=== PATIENT | female | born 1985 | race Caucasian/White ===

== ENCOUNTER 2017-02-21 19:53 | Emergency (ER) | payer MEDICAID, OTHER ==
--- NOTE | 2017-02-21 21:24 | ED.PDOC ---
History of Present Illness - General Chief Complaint: Abdominal Pain Stated Complaint: Abd cramping with vaginal spotting Time Seen by Provider: 02/21/17 20:14 Source: patient Exam Limitations: no limitations - History of Present Illness Initial Comments: Amber Dunbar 31 y/o female stated that she had positive test 2 weeks ago after she had vaginal bleeding and abdominal cramps then cramping went away but today stated had another episode of abdominal cramping and vaginal spotting.She is Ab 3 LMP-01/23/2017 stating had regular periods.She was seen initially at [facility] in [place] where he had positive test and ? hcg [id number].Patient lives in [place] and going back tomorrow. Timing/Duration: this morning, changing over time Quality: mild, cramping Onset Location: suprapubic Radiation: back Activites at Onset: none Prior abdominal problems: none Sexual intercourse history: other - always Improving Factors: nothing Worsening Factors: nothing Associated Symptoms: other - see hpi Allergies/Adverse Reactions: Allergies NO KNOWN ALLERGY Allergy (Verified 09/19/15 14:52) Home Medications: Ambulatory Orders Ibuprofen 800 mg PO Q8HRS PRN #30 tab 09/19/15 Lisdexamfetamine Dimesylate [Vyvanse] 20 mg PO DAILY PRN 09/19/15 Zolpidem Tartrate [Ambien] 5 mg PO DAILY PRN 09/19/15 Review of Systems - Review of Systems Constitutional: States: no symptoms reported EENTM: States: no symptoms reported Respiratory: States: no symptoms reported Cardiology: States: no symptoms reported Gastrointestinal/Abdominal: States: no symptoms reported Genitourinary: States: see HPI Musculoskeletal: States: no symptoms reported Skin: States: no symptoms reported Past Medical History (General) - Patient Medical History Hx Seizures: No Hx Stroke: No Hx Dementia: No Hx Asthma: No Hx of COPD: No Hx Cardiac Disorders: No Hx Congestive Heart Failure: No Hx Pacemaker: No Hx Hypertension: No Hx Thyroid Disease: No Hx Diabetes: No Hx Gastroesophageal Reflux: No Hx Renal Disease: No Hx Cancer: No Hx of HIV: No Hx Hepatitis C: No Hx MRSA: No Surgical History: appendectomy, cholecystectomy, other - Vaccination History Hx Tetanus, Diphtheria Vaccination: Yes - unknown last date Hx Influenza Vaccination: No Hx Pneumococcal Vaccination: No Immunizations Up to Date: No - Social History Hx Tobacco Use: No Hx Chewing Tobacco Use: No Hx Alcohol Use: No Hx Substance Use: No Hx Substance Use Treatment: No Hx Depression: No Hx Physical Abuse: No Hx Emotional Abuse: No Hx Suspected Abuse: No - Female History Patient is a Female of Child Bearing Age (10 -59 yrs old): Yes Hx Last Menstrual Period: 11/01/13 Patient : No - Triage Comment ED Triage Comment: Pt unsure of pregancy status Family Medical History - Family History Grandparents Living Status: Hx Family Hypertension: Yes Hx Cardiac Disease: Yes Sister Living Status: Still Living Hx Family Hypertension: Yes Physical Exam - Physical Exam General Appearance: Alert, Comfortable, No apparent distress Eyes, Ears, Nose, Throat Exam: normal ENT inspection, pharynx normal Neck: non-tender, full range of motion, supple Cardiovascular/Respiratory: regular rate, rhythm, no M/R/G, normal peripheral pulses, normal breath sounds Gastrointestinal/Abdominal: non tender, soft, no organomegaly Pelvic Exam: external exam normal, no cerv. motion tender, other - no active bleeding cervical os ,brownish discharge vaginal vault mentioned to patient stating she has it for almost a year Progress - Progress Progress: 02/21/17 21:44 Vital Signs - 8 hr 02/21/17 20:15 Temperature 98.8 F Pulse Rate [Lt 88 arm] Respiratory 20 Rate Blood Pressure 114/76 [Left Arm] O2 Sat by Pulse 97 Oximetry - Results/Orders Results/Orders: Laboratory Results - last 24 hr 02/21/17 02/21/17 02/21/17 20:40 20:40 20:57 WBC RBC Hgb Hct MCV MCH MCHC RDW Plt Count MPV Absolute Neuts (auto) Absolute Lymphs (auto) Absolute Monos (auto) Absolute Eos (auto) Absolute Basos (auto) Neutrophils % Lymphocytes % Monocytes % Eosinophils % Basophils % Beta HCG, Quant 3032.0 H Urine Color Yellow Urine Appearance Clear Urine pH 5.5 Ur Specific [place] >= 1.030 Urine Protein Negative Urine Glucose (UA) Negative Urine Ketones Negative Urine Blood Moderate H Urine Nitrite Negative Urine Bilirubin Negative Urine Urobilinogen 0.2 Ur Leukocyte Esterase Negative Urine RBC 3-5 H Urine WBC 0-1 Ur Epithelial Cells 1-3 Urine Bacteria Rare Urine Mucus Small Urine HCG, Qual Positive Patient ABO/Rh 02/21/17 02/21/17 21:09 21:09 WBC 8.2 RBC 4.16 L Hgb 13.3 Hct 38.2 MCV 91.9 MCH 31.9 H MCHC 34.8 RDW 12.6 Plt Count 259 MPV 8.5 Absolute Neuts (auto) 5.40 Absolute Lymphs (auto) 1.90 Absolute Monos (auto) 0.70 Absolute Eos (auto) 0.10 Absolute Basos (auto) 0.00 Neutrophils % 65.9 Lymphocytes % 23.2 Monocytes % 9.1 H Eosinophils % 1.5 Basophils % 0.3 Beta HCG, Quant Urine Color Urine Appearance Urine pH Ur Specific [place] Urine Protein Urine Glucose (UA) Urine Ketones Urine Blood Urine Nitrite Urine Bilirubin Urine Urobilinogen Ur Leukocyte Esterase Urine RBC Urine WBC Ur Epithelial Cells Urine Bacteria Urine Mucus Urine HCG, Qual Patient ABO/Rh A POSITIVE Never had abdominal cramps while in er Departure - Departure Clinical Impression: Qualifiers: Weeks of gestation: less than 8 weeks Qualified Code(s): Z3A.01 - Less than 8 weeks gestation of Spotting affecting Qualifiers: Trimester: first trimester Qualified Code(s): O26.851 - Spotting complicating , first trimester Time of Disposition: 22:40 Disposition: Discharge to Home or Self Care Condition: Good Departure Forms: ED Discharge - Pt. Copy, Patient Portal Self Enrollment Instructions: DI for Abdominal Pain -- Early Home Medications: Ambulatory Orders Ibuprofen 800 mg PO Q8HRS PRN #30 tab 09/19/15 Lisdexamfetamine Dimesylate [Vyvanse] 20 mg PO DAILY PRN 09/19/15 Zolpidem Tartrate [Ambien] 5 mg PO DAILY PRN 09/19/15 Additional Instructions: NEED TO GO TO NEAREST ER WITH OB SERVICES IF SYMPTOMS RECURS;RETURN TO ER NEEDED;MAKE AN APPOINTMENT WITH [facility]
[2017-02-21] MEDS ORDERED: LACTATED RINGERS 1,000 ML IVS ONE (21:25)
[2017-02-21] MEDS ORDERED: ACETAMINOPHEN 500 MG TAB PO ONE (21:48)
[2017-02-21 22:55] VITALS: BP 110/68; TEMP 98.4; O2SAT 98
== END 2017-02-21 22:56 | disposition home or self-care (01) ==
LOC: ER 19:53
DX: O26.851 Spotting complicating pregnancy, first trimester (principal); Z3A.01 Less than 8 weeks gestation of pregnancy
CPT/HCPCS: 36415; 81001; 81025; 84702; 85025; 86900; 86901; J7120

== ENCOUNTER 2019-03-03 08:32 | Emergency (ER) | payer SELFPAY ==
[2019-03-03 09:16] VITALS: BP 106/86; TEMP 98; O2SAT 97
--- NOTE | 2019-03-03 09:58 | ED.PDOC ---
History of Present Illness - General Chief Complaint: ENT Problem Stated Complaint: Recent dx of strep throat Time Seen by Provider: 03/03/19 08:59 Source: patient, Vital Signs reviewed Exam Limitations: no limitations - History of Present Illness Initial Comments: patient presents today as a 33-year-old female with complaints of sore throat for one week. She states that she lives 5 hours away. She was recently diagnosed with strep throat and left her medications at home. She is here visiting family. She denies any recent fever or chills or nausea or vomiting. She states that she was on cephalexin but has taken a family member's amoxicillin and felt that it was working better. Allergies/Adverse Reactions: Allergies NO KNOWN ALLERGY Allergy (Verified 09/19/15 14:52) Home Medications: Ambulatory Orders Amoxicillin [Amoxil] 875 mg PO BID #20 cap 03/03/19 Cephalexin 500 mg PO BID 03/03/19 Review of Systems - Review of Systems Constitutional: States: no symptoms reported EENTM: States: throat pain. Denies: eye pain, tearing, nose congestion, throat swelling Respiratory: States: no symptoms reported Cardiology: States: no symptoms reported Gastrointestinal/Abdominal: States: no symptoms reported Genitourinary: States: no symptoms reported Musculoskeletal: States: no symptoms reported Skin: States: no symptoms reported Neurological: States: no symptoms reported Endocrine: States: no symptoms reported Hematologic/Lymphatic: States: no symptoms reported All other Systems: Reviewed and Negative Past Medical History (General) - Patient Medical History Hx Seizures: No Hx Stroke: No Hx Dementia: No Hx Asthma: No Hx of COPD: No Hx Cardiac Disorders: No Hx Congestive Heart Failure: No Hx Pacemaker: No Hx Hypertension: No Hx Thyroid Disease: No Hx Diabetes: No Hx Gastroesophageal Reflux: No Hx Renal Disease: No Hx Cancer: No Hx of HIV: No Hx Hepatitis C: No Hx MRSA: No Surgical History: appendectomy, cholecystectomy, tonsillectomy - Vaccination History Hx Tetanus, Diphtheria Vaccination: Yes - unknown last date Hx Influenza Vaccination: No Hx Pneumococcal Vaccination: No - Social History Hx Tobacco Use: Yes - Quit 2019 Hx Chewing Tobacco Use: No Hx Alcohol Use: No Hx Substance Use: No Hx Substance Use Treatment: No Hx Depression: No Hx Physical Abuse: No Hx Emotional Abuse: No Hx Suspected Abuse: No - Female History Patient is a Female of Child Bearing Age (10 -59 yrs old): Yes Hx Last Menstrual Period: 11/01/13 Patient : No Family Medical History - Family History Grandparents Living Status: Hx Family Hypertension: Yes Hx Cardiac Disease: Yes Sister Living Status: Still Living Hx Family Hypertension: Yes Physical Exam - Physical Exam General Appearance: Alert, No apparent distress Eye Exam: bilateral normal Ear Exam: bilateral ear: auricle normal, canal normal, TM normal Nasal Exam: normal inspection Throat Exam: normal mouth inspection, pharynx normal Neck: non-tender, full range of motion, supple, normal inspection, trachea midline Cardiovascular/Respiratory: regular rate, rhythm, no M/R/G, normal peripheral pulses, no JVD, normal breath sounds, no respiratory distress Abdominal Exam: non-tender, no organomegaly, no hernia Neurologic: umbrella tipper machine II-XII nml as tested, no motor/sensory deficits, alert, normal mood/affect, oriented x 3 Skin Exam: normal color, warm/dry Departure - Departure Clinical Impression: Pharyngitis Qualifiers: Pharyngitis/tonsillitis etiology: streptococcus Qualified Code(s): J02.0 - Streptococcal pharyngitis Time of Disposition: 09:56 Disposition: Discharge to Home or Self Care Condition: Excellent Departure Forms: ED Discharge - Pt. Copy, Patient Portal Self Enrollment Instructions: Sore Throat, Adult (DC) Prescriptions: Amoxicillin [Amoxil] 875 mg PO BID #20 cap Home Medications: Ambulatory Orders Amoxicillin [Amoxil] 875 mg PO BID #20 cap 03/03/19 Cephalexin 500 mg PO BID 03/03/19 Comments: complete antibiotic prescription. follow-up with PCP as necessary. Return to ED as necessary.
== END 2019-03-03 10:11 | disposition home or self-care (01) ==
LOC: ER 08:32
DX: J02.0 Streptococcal pharyngitis (principal); Z87.891 Personal history of nicotine dependence

== ENCOUNTER 2019-08-30 15:59 | Emergency (ER) | payer SELFPAY ==
[2019-08-30] MEDS ORDERED: ALUM & MAG HYDROX-SIMETHICONE 30 ML UD ONE (16:13)
[2019-08-30] MEDS ORDERED: LIDOCAINE HCL 2% (MOUTH-THROAT) 15 ML UD ONE (16:13)
[2019-08-30] MEDS: ALUM & MAG HYDROX-SIMETHICONE 30 ML, LIDOCAINE VISCOUS 2% 15 ML PO ONE ×2 (16:14)
[2019-08-30] MEDS: FAMOTIDINE 20 MG TAB PO ONE (16:50)
[2019-08-30] MEDS: SUCRALFATE 1 GM/10 ML 1 GM UD PO ONE (16:50)
--- NOTE | 2019-08-30 16:50 | RAD ---
EXAM DESCRIPTION: Abdomen Series CLINICAL HISTORY: 33 years Female, epigastric and chest pain COMPARISON: Previous obstructive series July 28, 2015 FINDINGS: Heart size is normal with normal pulmonary vascularity. No consolidating infiltrate or mass or pleural effusion. Upright view shows surgical clips in the right upper abdomen. Lung bases appear clear. Moderate amount of fecal material in the colon. No small bowel dilatation to suggest obstruction. IMPRESSION: Moderate amount of fecal material in the colon. No acute process is identified in the chest or abdomen. Electronically signed by: Drew Salmon MD 08/30/2019 4:48 PM CDT
[2019-08-30 19:16] VITALS: TEMP 98.4; O2SAT 100
--- NOTE | 2019-08-30 19:18 | ED.PDOC ---
History of Present Illness - General Chief Complaint: Chest Pain/OK Stated Complaint: chest pain Time Seen by Provider: 08/30/19 16:00 Source: patient Exam Limitations: no limitations - History of Present Illness Initial Comments: Patient is a 33-year-old female presenting to the emergency room secondary to intermittent chest pain that is been occurring over the last several hours. She is not currently having any chest pain. Chest pain actually starts in the epigastric area and then moves up substernally up almost to the neck. She felt like she was needing to burp for part of the time. The GI cocktail given to her here did not do much as she was not actually having any discomfort when she arrived here. She has had a history of reflux past. No history of any cardiac issues. Symptoms first occurred about 30 minutes after a large meal. Timing/Duration: 1-3 hours Severity: moderate Improving Factors: nothing Worsening Factors: nothing Associated Symptoms: denies symptoms Allergies/Adverse Reactions: Allergies NO KNOWN ALLERGY Allergy (Verified 08/30/19 16:12) Home Medications: Ambulatory Orders Famotidine 20 mg PO DAILY #30 tab 08/30/19 Sucralfate Tab [Carafate Tab] 1 gm PO QID #60 tab 08/30/19 Review of Systems - Review of Systems Constitutional: States: no symptoms reported EENTM: States: no symptoms reported Respiratory: States: no symptoms reported Cardiology: States: chest pain Gastrointestinal/Abdominal: States: abdominal pain, nausea Genitourinary: States: no symptoms reported Musculoskeletal: States: no symptoms reported Skin: States: no symptoms reported Neurological: States: no symptoms reported Endocrine: States: no symptoms reported All other Systems: No Change from Baseline Past Medical History (General) - Patient Medical History Hx Seizures: No Hx Stroke: No Hx Dementia: No Hx Asthma: No Hx of COPD: No Hx Cardiac Disorders: No Hx Congestive Heart Failure: No Hx Pacemaker: No Hx Hypertension: No Hx Thyroid Disease: No Hx Diabetes: No Hx Gastroesophageal Reflux: No Hx Renal Disease: No Hx Cancer: No Hx of HIV: No Hx Hepatitis C: No Hx MRSA: No - Vaccination History Hx Tetanus, Diphtheria Vaccination: Yes - unknown last date Hx Influenza Vaccination: No Hx Pneumococcal Vaccination: No - Social History Hx Tobacco Use: Yes - Quit 2019 Hx Chewing Tobacco Use: No Hx Alcohol Use: No Hx Substance Use: No Hx Substance Use Treatment: No Hx Depression: No Hx Physical Abuse: No Hx Emotional Abuse: No Hx Suspected Abuse: No - Activities of Daily Living Hospice Agency (if applicable):: None - Female History Patient is a Female of Child Bearing Age (10 -59 yrs old): No Hx Last Menstrual Period: 11/01/13 Patient : No Family Medical History - Family History Grandparents Living Status: Hx Family Hypertension: Yes Hx Cardiac Disease: Yes Sister Living Status: Still Living Hx Family Hypertension: Yes Physical Exam - Physical Exam General Appearance: Alert, Comfortable, No apparent distress Eye Exam: bilateral normal Ears, Nose, Throat: hearing grossly normal, normal ENT inspection Neck: full range of motion, supple Respiratory: lungs clear, normal breath sounds, no respiratory distress, no accessory muscle use Cardiovascular/Chest: normal peripheral pulses, regular rate, rhythm, no edema Peripheral Pulses: radial,right: 2+, radial,left: 2+ Gastrointestinal/Abdominal: non tender, soft Rectal Exam: deferred Back Exam: no CVA tenderness, no vertebral tenderness Extremity: normal range of motion, non-tender, normal inspection, no pedal edema, normal capillary refill Neurologic: change room attendant II-XII nml as tested, alert, normal mood/affect, oriented x 3 Skin Exam: normal color Comments: Vital Signs - 24 hr 08/30/19 08/30/19 08/30/19 16:00 16:13 17:00 Temperature 98.5 F 98.4 F Pulse Rate [ 77 77 66 brachial] Respiratory 16 18 18 Rate Blood Pressure 130/89 133/77 [Left Arm] O2 Sat by Pulse 96 100 Oximetry 08/30/19 18:00 Temperature 98.4 F Pulse Rate [ 63 brachial] Respiratory 18 Rate Blood Pressure 130/89 [Left Arm] O2 Sat by Pulse 100 Oximetry Progress - Progress Progress: 08/30/19 19:18 The patient is a 33-year-old female presenting with epigastric and substernal pain that is most likely related to esophagitis. 2 sets of cardiac enzymes and EKGs were performed which were reassuring. Chest x-ray was reassuring. The patient is going to be placed on Carafate and Pepcid for the next couple of weeks to help reduce this issue. She can also use liquid Maalox as needed. She needs to maintain a bland diet with small frequent meals. X-ray does show some mild constipation so a dose of milk of magnesia once a week for couple of weeks may also help. ER warnings are given for any significant worsening. Keep routine follow-up with primary care doctor otherwise. alex [email or web address] - Results/Orders Results/Orders: Chest x-ray appears benign. EKG shows normal sinus rhythm. Normal axis. No ST segment or T wave changes indicative of acute ischemia. Borderline early right bundle branch block. Occa sional PACs. Normal QT interval. Laboratory Tests 08/30/19 08/30/19 08/30/19 16:10 16:10 16:10 WBC 7.2 RBC 4.47 Hgb 14.4 Hct 41.3 MCV 92.5 MCH 32.3 H MCHC 35.0 RDW 12.7 Plt Count 275 MPV 8.9 Absolute Neuts (auto) 4.20 Absolute Lymphs (auto) 2.30 Absolute Monos (auto) 0.60 Absolute Eos (auto) 0.10 Absolute Basos (auto) 0.00 Neutrophils % 58.3 Lymphocytes % 31.5 Monocytes % 8.0 Eosinophils % 1.7 Basophils % 0.5 PT 9.7 INR < 1.00 PTT (SP) 24.4 D-Dimer, Quantitative Sodium 137 Potassium 3.6 Chloride 106 Carbon Dioxide 25 Anion Gap 9.6 L BUN 9 Creatinine 0.74 BUN/Creatinine Ratio 12.2 Random Glucose 82 Serum Osmolality 271.6 L Calcium 9.1 Magnesium 1.9 Total Bilirubin 0.5 AST 23 ALT 29 Alkaline Phosphatase 46 Creatine Kinase 91 CK-MB (CK-2) 1.9 CK-MB (CK-2) % Not Reportable Troponin I < 0.02 B-Natriuretic Peptide 6.7 Serum Total Protein 7.8 Albumin 4.1 Globulin 3.7 H Albumin/Globulin Ratio 1.1 Amylase 34 Lipase 35 TSH 5.51 Serum HCG, Qual Urine Color Urine Appearance Urine pH Ur Specific [place] Urine Protein Urine Glucose (UA) Urine Ketones Urine Blood Urine Nitrite Urine Bilirubin Urine Urobilinogen Ur Leukocyte Esterase Urine RBC Urine WBC Ur Epithelial Cells Urine Bacteria 08/30/19 08/30/19 08/30/19 16:10 16:10 16:42 WBC RBC Hgb Hct MCV MCH MCHC RDW Plt Count MPV Absolute Neuts (auto) Absolute Lymphs (auto) Absolute Monos (auto) Absolute Eos (auto) Absolute Basos (auto) Neutrophils % Lymphocytes % Monocytes % Eosinophils % Basophils % PT INR PTT (SP) D-Dimer, Quantitative 159 Sodium Potassium Chloride Carbon Dioxide Anion Gap BUN Creatinine BUN/Creatinine Ratio Random Glucose Serum Osmolality Calcium Magnesium Total Bilirubin AST ALT Alkaline Phosphatase Creatine Kinase CK-MB (CK-2) CK-MB (CK-2) % Troponin I B-Natriuretic Peptide Serum Total Protein Albumin Globulin Albumin/Globulin Ratio Amylase Lipase TSH Serum HCG, Qual Negative Urine Color Yellow Urine Appearance Sl cloudy Urine pH 6.0 Ur Specific [place] 1.020 Urine Protein Negative Urine Glucose (UA) Negative Urine Ketones Negative Urine Blood Moderate H Urine Nitrite Negative Urine Bilirubin Negative Urine Urobilinogen 0.2 Ur Leukocyte Esterase Negative Urine RBC 1-3 Urine WBC 1-3 Ur Epithelial Cells 20-30 Urine Bacteria 1+ 08/30/19 18:44 WBC RBC Hgb Hct MCV MCH MCHC RDW Plt Count MPV Absolute Neuts (auto) Absolute Lymphs (auto) Absolute Monos (auto) Absolute Eos (auto) Absolute Basos (auto) Neutrophils % Lymphocytes % Monocytes % Eosinophils % Basophils % PT INR PTT (SP) D-Dimer, Quantitative Sodium Potassium Chloride Carbon Dioxide Anion Gap BUN Creatinine BUN/Creatinine Ratio Random Glucose Serum Osmolality Calcium Magnesium Total Bilirubin AST ALT Alkaline Phosphatase Creatine Kinase 82 CK-MB (CK-2) 1.6 CK-MB (CK-2) % Not Reportable Troponin I < 0.02 B-Natriuretic Peptide Serum Total Protein Albumin Globulin Albumin/Globulin Ratio Amylase Lipase TSH Serum HCG, Qual Urine Color Urine Appearance Urine pH Ur Specific [place] Urine Protein Urine Glucose (UA) Urine Ketones Urine Blood Urine Nitrite Urine Bilirubin Urine Urobilinogen Ur Leukocyte Esterase Urine RBC Urine WBC Ur Epithelial Cells Urine Bacteria Departure - Departure Clinical Impression: Esophagitis Disposition: Discharge to Home or Self Care Condition: Fair Departure Forms: ED Discharge - Pt. Copy, Patient Portal Self Enrollment Instructions: Acid Reflux and GERD in Adults (DC) Diet: bland diet Activity: increase activity as tolerated Referrals: Evan De La Garza MD [Primary Care Provider] - 1-2 Weeks Prescriptions: Famotidine 20 mg PO DAILY #30 tab Sucralfate Tab [Carafate Tab] 1 gm PO QID #60 tab Home Medications: Ambulatory Orders Famotidine 20 mg PO DAILY #30 tab 08/30/19 Sucralfate Tab [Carafate Tab] 1 gm PO QID #60 tab 08/30/19 Additional Instructions: The patient is a 33-year-old female presenting with epigastric and substernal pain that is most likely related to esophagitis. 2 sets of cardiac enzymes and EKGs were performed which were reassuring. Chest x-ray was reassuring. The patient is going to be placed on Carafate and Pepcid for the next couple of weeks to help reduce this issue. She can also use liquid Maalox as needed. She needs to maintain a bland diet with small frequent meals. X-ray does show some mild constipation so a dose of milk of magnesia once a week for couple of weeks may also help. ER warnings are given for any significant worsening. Keep routine follow-up with primary care doctor otherwise.
[2019-08-30 19:27] VITALS: BP 128/89
== END 2019-08-30 19:49 | disposition home or self-care (01) ==
LOC: ER 15:59
DX: K20.9 Esophagitis, unspecified (principal); R07.9 Chest pain, unspecified; Z87.891 Personal history of nicotine dependence

== ENCOUNTER → 2019-09-10 | Outpatient (CLI) | payer MEDICAID | LOC: GMA MATASK 15:31 | PROVIDERS: ATTEND Family Medicine | DX: M25.50 Pain in unspecified joint (principal) ==

== ENCOUNTER 2019-11-02 14:59 | Emergency (ER) | payer MEDICAID, OTHER ==
--- NOTE | 2019-11-02 15:40 | ED.PDOC ---
History of Present Illness - General Chief Complaint: ENT Problem Stated Complaint: exposed to strep,tingle in throat Time Seen by Provider: 11/02/19 15:04 Source: patient Exam Limitations: no limitations - History of Present Illness Initial Comments: Patient is a 33-year-old female presented emergency room secondary to a mild sore throat as well as some increased pressure in bilateral ears. No fever. Her did test positive for strep throat about a week to 10 days ago. Posterior oropharynx is actually fairly clear. Tympanic membranes show mild increased pressure but no evidence of overt infection. Lungs are clear. No rash. Timing/Duration: 1 week Severity: mild Improving Factors: nothing Worsening Factors: nothing Associated Symptoms: denies symptoms Allergies/Adverse Reactions: Allergies NO KNOWN ALLERGY Allergy (Verified 08/30/19 16:12) Home Medications: Ambulatory Orders Tramadol HCl 50 mg PO PRN 11/02/19 Zolpidem Tartrate [Ambien] 10 mg PO BEDTIME 11/02/19 Review of Systems - Review of Systems Constitutional: States: malaise EENTM: States: ear pain, throat pain Respiratory: States: no symptoms reported Cardiology: States: no symptoms reported Gastrointestinal/Abdominal: States: no symptoms reported Genitourinary: States: no symptoms reported Musculoskeletal: States: no symptoms reported Skin: States: no symptoms reported Neurological: States: no symptoms reported Endocrine: States: no symptoms reported All other Systems: No Change from Baseline Past Medical History (General) - Patient Medical History Hx Seizures: No Hx Stroke: No Hx Dementia: No Hx Asthma: No Hx of COPD: No Hx Cardiac Disorders: No Hx Congestive Heart Failure: No Hx Pacemaker: No Hx Hypertension: No Hx Thyroid Disease: No Hx Diabetes: No Hx Gastroesophageal Reflux: No Hx Renal Disease: No Hx Cancer: No Hx of HIV: No Hx Hepatitis C: No Hx MRSA: No Surgical History: appendectomy, cholecystectomy - Vaccination History Hx Tetanus, Diphtheria Vaccination: Yes - unknown last date Hx Influenza Vaccination: No Hx Pneumococcal Vaccination: No - Social History Hx Tobacco Use: Yes Hx Chewing Tobacco Use: No Hx Alcohol Use: No Hx Substance Use: No Hx Substance Use Treatment: No Hx Depression: No Hx Physical Abuse: No Hx Emotional Abuse: No Hx Suspected Abuse: No - Female History Hx Last Menstrual Period: 11/01/13 Patient : No Family Medical History - Family History Grandparents Living Status: Hx Family Hypertension: Yes Hx Cardiac Disease: Yes Sister Living Status: Still Living Hx Family Hypertension: Yes Physical Exam - Physical Exam General Appearance: Alert, Comfortable, No apparent distress Eye Exam: bilateral normal Ears, Nose, Throat: hearing grossly normal, normal pharynx, other - See above Neck: full range of motion, supple Respiratory: lungs clear, normal breath sounds, no respiratory distress, no accessory muscle use Cardiovascular/Chest: normal peripheral pulses, regular rate, rhythm, no edema Peripheral Pulses: radial,right: 2+, radial,left: 2+ Rectal Exam: deferred Extremity: normal range of motion, normal inspection, normal capillary refill 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 This is possibly a mild viral upper respiratory tract infection however it does look more like allergies than anything at this point. to Help reduce the ear pressure the patient can take 1 Zyrtec nightly for the next 2 weeks. Additionally she can take 2 Aleve twice daily with food. She needs to keep her self well-hydrated. ER warnings are given. Keep routine follow-up with primary care doctor. [email or web address] [id number] Departure - Departure Clinical Impression: Otitis, media, allergic Qualifiers: Chronicity: subacute Laterality: bilateral Recurrence: recurrent Qualified Code(s): H65.116 - Acute and subacute allergic otitis media (mucoid) (sanguinous) (serous), recurrent, bilateral Disposition: Discharge to Home or Self Care Condition: Fair Departure Forms: ED Discharge - Pt. Copy, Patient Portal Self Enrollment Instructions: Seasonal Allergies (DC) Diet: regular diet Activity: increase activity as tolerated Referrals: Evan De La Garza MD [Primary Care Provider] - 1-2 Weeks Home Medications: Ambulatory Orders Tramadol HCl 50 mg PO PRN 11/02/19 Zolpidem Tartrate [Ambien] 10 mg PO BEDTIME 11/02/19 Additional Instructions: The patient is a 33-year-old female presenting with mild intermittent sore throat and increased ear pressure. This is possibly a mild viral upper respiratory tract infection however it does look more like allergies than anything at this point. to Help reduce the ear pressure the patient can take 1 Zyrtec nightly for the next 2 weeks. Additionally she can take 2 Aleve twice daily with food. She needs to keep her self well-hydrated. ER warnings are given. Keep routine follow-up with primary care doctor.
[2019-11-02 16:25] VITALS: BP 125/72; TEMP 97.8; O2SAT 99
== END 2019-11-02 16:13 | disposition home or self-care (01) ==
LOC: ER 14:59
DX: H65.116 Acute and subacute allergic otitis media (mucoid) (sanguinous) (serous), recurrent, bilateral (principal); J02.9 Acute pharyngitis, unspecified; Z87.891 Personal history of nicotine dependence

== ENCOUNTER 2020-03-13 09:43 | Emergency (ER) | payer OTHER ==
[2020-03-13] MEDS ORDERED: MAGNESIUM HYDROXIDE 30 ML UD PO ONE (10:05)
[2020-03-13 10:14] VITALS: O2SAT 99
--- NOTE | 2020-03-13 10:45 | RAD ---
EXAM DESCRIPTION: Abdomen Series CLINICAL HISTORY: lowerabd pain hx constipation COMPARISON: August 30, 2019 TECHNIQUE: X-ray three-view chest and abdomen including supine and upright views of the abdomen and AP chest FINDINGS: The lungs are clear. Bowel gas pattern is unremarkable. No mass or calculus observed. IMPRESSION: 1. Normal Electronically signed by: Sal Nicolas MD 03/13/2020 10:43 AM NON LICENSED OPERATOR
--- NOTE | 2020-03-13 11:06 | ED.PDOC ---
History of Present Illness - General Chief Complaint: Abdominal Pain Stated Complaint: abdominal pain, constipation/diarrhea Time Seen by Provider: 03/13/20 09:57 Source: patient Exam Limitations: no limitations - History of Present Illness Initial Comments: The patient is a 34-year-old female presented emergency room secondary to an episode of gastritis and esophagitis last night. The patient does have chronic constipation complicating the issue. She has had a decrease in bowel movements recently which has caused her increased discomfort. No vomiting. No syncope. No fevers. No point abdominal tenderness. No blood in the stool. No obvious blood in the urine. Timing/Duration: 24 hours Severity: moderate Improving Factors: nothing Worsening Factors: nothing Associated Symptoms: loss of appetite, malaise Allergies/Adverse Reactions: Allergies NO KNOWN ALLERGY Allergy (Verified 08/30/19 16:12) Home Medications: Ambulatory Orders Tramadol HCl 50 mg PO PRN 11/02/19 Zolpidem Tartrate [Ambien] 10 mg PO BEDTIME 11/02/19 Famotidine 20 mg PO DAILY #30 tab 03/13/20 Lactulose [Constulose] 10 gm PO BID #300 gm 03/13/20 Sucralfate Tab [Carafate Tab] 1 gm PO QID #120 tab 03/13/20 Review of Systems - Review of Systems Constitutional: States: no symptoms reported EENTM: States: no symptoms reported Respiratory: States: no symptoms reported Cardiology: States: no symptoms reported Gastrointestinal/Abdominal: States: see HPI Genitourinary: States: no symptoms reported Musculoskeletal: States: no symptoms reported Skin: States: no symptoms reported Neurological: States: no symptoms reported Endocrine: States: no symptoms reported All other Systems: No Change from Baseline Past Medical History (General) - Patient Medical History Hx Seizures: No Hx Stroke: No Hx Dementia: No Hx Asthma: No Hx of COPD: No Hx Cardiac Disorders: No Hx Congestive Heart Failure: No Hx Pacemaker: No Hx Hypertension: No Hx Thyroid Disease: No Hx Diabetes: No Hx Gastroesophageal Reflux: No Hx Renal Disease: No Hx Cancer: No Hx of HIV: No Hx Hepatitis C: No Hx MRSA: No Surgical History: appendectomy, cholecystectomy, other - Vaccination History Hx Tetanus, Diphtheria Vaccination: Yes - unknown last date Hx Influenza Vaccination: No Hx Pneumococcal Vaccination: No - Social History Hx Tobacco Use: Yes Hx Chewing Tobacco Use: No Hx Alcohol Use: No Hx Substance Use: No Hx Substance Use Treatment: No Hx Depression: No Hx Physical Abuse: No Hx Emotional Abuse: No Hx Suspected Abuse: No - Female History Hx Last Menstrual Period: 11/01/13 Patient : No Family Medical History - Family History Mother Family History: No Known Grandparents Living Status: Hx Family Hypertension: Yes Hx Cardiac Disease: Yes Sister Living Status: Still Living Hx Family Hypertension: Yes Physical Exam - Physical Exam General Appearance: Alert, Comfortable, No apparent distress Eye Exam: bilateral normal Ears, Nose, Throat: hearing grossly normal, normal pharynx Neck: full range of motion, supple Respiratory: lungs clear, normal breath sounds, no respiratory distress, no accessory muscle use Cardiovascular/Chest: normal peripheral pulses, regular rate, rhythm, no edema Peripheral Pulses: radial,right: 2+, radial,left: 2+ Gastrointestinal/Abdominal: non tender, soft Rectal Exam: deferred Back Exam: no CVA tenderness, no vertebral tenderness Extremity: normal range of motion, non-tender, normal inspection, no pedal edema, normal capillary refill Neurologic: vector control assistant II-XII nml as tested, alert, normal mood/affect, oriented x 3 Skin Exam: normal color Comments: Vital Signs - 24 hr 03/13/20 09:50 Temperature 97.4 F L Pulse Rate [ 74 right brachial] Respiratory 22 Rate Blood Pressure 122/82 [left brachial] O2 Sat by Pulse 99 Oximetry Laboratory Tests 03/13/20 03/13/20 10:10 10:10 Urine Color Yellow Urine Appearance Clear Urine pH 7.0 Ur Specific [place] 1.025 Urine Protein Negative Urine Glucose (UA) Negative Urine Ketones Negative Urine Blood Moderate H Urine Nitrite Negative Urine Bilirubin Negative Urine Urobilinogen 0.2 Ur Leukocyte Esterase Negative Urine RBC 20-30 H Urine WBC 1-3 Ur Epithelial Cells 1-3 Urine Bacteria Rare Urine Mucus Trace Urine HCG, Qual Negative Progress - Progress Progress: 03/13/20 11:04 The patient is a 34-year-old female presented emergency room secondary to symptoms of her chronic constipation as well as what appears to be a mild gastritis. The patient is going to be written for lactulose for daily use for the next couple of weeks. If this works well for her she needs to talk to her primary care doctor about using this as a long-term solution. For the gastritis the patient is going to be written for Pepcid and Carafate for the next couple of weeks. She does need to maintain a bland diet. Patient does have a small amount of red blood cells in her urine. She does need a repeat urinalysis with her primary care doctor in a couple of weeks to make sure this clears. No overt evidence of infection on the urinary tract otherwise. ER warnings are given. alex [email or web address] [id number] - Results/Orders Results/Orders: Acute abdominal series appears benign. Departure - Departure Clinical Impression: Chronic constipation Gastritis Qualifiers: Gastritis type: unspecified gastritis Chronicity: acute Gastritis bleeding: without bleeding Qualified Code(s): K29.00 - Acute gastritis without bleeding Disposition: Discharge to Home or Self Care Condition: Fair Departure Forms: ED Discharge - Pt. Copy, Patient Portal Self Enrollment Instructions: DI for Abdominal Pain-Adult, Gastritis (DC), Constipation, Adult (DC) Diet: bland diet Activity: increase activity as tolerated Referrals: Evan De La Garza MD [Primary Care Provider] - 1-2 Weeks Prescriptions: Sucralfate Tab [Carafate Tab] 1 gm PO QID #120 tab Lactulose [Constulose] 10 gm PO BID #300 gm Famotidine 20 mg PO DAILY #30 tab Home Medications: Ambulatory Orders Tramadol HCl 50 mg PO PRN 11/02/19 Zolpidem Tartrate [Ambien] 10 mg PO BEDTIME 11/02/19 Famotidine 20 mg PO DAILY #30 tab 03/13/20 Lactulose [Constulose] 10 gm PO BID #300 gm 03/13/20 Sucralfate Tab [Carafate Tab] 1 gm PO QID #120 tab 03/13/20 Additional Instructions: The patient is a 34-year-old female presented emergency room secondary to symptoms of her chronic constipation as well as what appears to be a mild gastritis. The patient is going to be written for lactulose for daily use for the next couple of weeks. If this works well for her she needs to talk to her primary care doctor about using this as a long-term solution. For the gastritis the patient is going to be written for Pepcid and Carafate for the next couple of weeks. She does need to maintain a bland diet. Patient does have a small amount of red blood cells in her urine. She does need a repeat urinalysis with her primary care doctor in a couple of weeks to make sure this clears. No overt evidence of infection on the urinary tract otherwise. ER warnings are given.
[2020-03-13 11:31] VITALS: BP 106/74; TEMP 97.5
== END 2020-03-13 11:31 | disposition home or self-care (01) ==
LOC: ER 09:43
DX: K29.00 Acute gastritis without bleeding (principal); K59.00 Constipation, unspecified; Z90.49 Acquired absence of other specified parts of digestive tract; Z87.891 Personal history of nicotine dependence; Z79.899 Other long term (current) drug therapy